=== PATIENT | female | born 1990 | race Caucasian/White ===

== ENCOUNTER → 2018-11-09 | Outpatient (CLI) | payer OTHER ==
--- NOTE | 2018-11-10 10:04 | US ---
EXAMINATION TYPE: US pelvis complete transvaginal plus Dopplers DATE OF EXAM: 11/09/2018 COMPARISON: None CLINICAL HISTORY: 28-year-old female R10.2 Pelvic pain, N92.6 Irregular menses; ; patient stated pelvic pain is noted at time of ovulation and irregular menses as had no LMP in past 2 to 3 months. TECHNIQUE: Transabdominal sonographic images of the pelvis were acquired. Transvaginal sonographic images were medically necessary to better assess the following anatomy: endometrium and ovaries. Col or Doppler and spectral waveform analysis of the ovarian arteries. Date of LMP: 11/06/2018 FINDINGS: EXAM MEASUREMENTS: Uterus: 8.7 x 5.2 x 4.2 cm Endometrial Stripe: 1.0 cm Right Ovary: 3.5 x 2.9 x 2.2 cm Left Ovary: 2.5 x 2.0 x 1.1 cm 1. Uterus: Anteverted; multiple small Nabothian cysts in cervix, largest measuring 0.6 x 0.5 x 0.5cm 2. Endometrium: thickness may be wnl for day 4 of the menstrual cycle 3. Right Ovary: small follicles with largest simple follicle = 0.8 x 0.8 x 0.8 cm. 4. Left Ovary: thick wall involuting cyst noted = 1.2 x 1.1 x 0.7cm Spectral, color and waveform doppler imaging shows good arterial and venous flow within the ovaries ; there is no evidence for ovarian torsion. 5. Bilateral Adnexa: wnl 6. Posterior cul-de-sac: wnl IMPRESSION: 1. No sonographic evidence for ovarian torsion. 2. Probable 1.2 cm corpus luteum on the left and a dominant follicle on the right measuring only 8 mm . 3. No pelvic free fluid.
== END | disposition home or self-care (01) ==
LOC: RADUSWWP 15:43
PROVIDERS: ATTEND Obstetrics & Gynecology
DX: R10.2 Pelvic and perineal pain (principal); N92.6 Irregular menstruation, unspecified
CPT/HCPCS: 76830; 76856

== ENCOUNTER → 2020-09-27 | Outpatient (CLI) | payer OTHER ==
[2020-09-27 14:39] LABS: HCT 42.1 % (37.2-46.3); HGB 13.7 g/dL (12.0-15.0); MCH 29.6 pg (27.0-32.0); MCHC 32.5 g/dL (32.0-37.0); MCV 90.9 fL (80.0-97.0); Mean Platelet Volume 10.1 fL (9.5-12.2); Platelet Count 302 X 10*3/uL (140-440); RBC 4.63 X 10*6/uL (4.10-5.20); RDW 12.8 % (11.5-14.5); WBC 8.69 X 10*3/uL (4.50-10.00)
[2020-09-27 17:03] LABS: African American GFR (CKD) 133.8 (60.0-200.0); Albumin 4.4 g/dL (3.80-4.90); Anion Gap 9.4 mmol/L (4.00-12.00); BUN/Creat Ratio 27.14 Ratio (12.00-20.00); Calcium 8.8 mg/dL (8.7-10.3); Carbon Dioxide 21.6 mmol/L (21.6-31.8); Chol/HDL Ratio 3.57; Globulin 2.2 g/dL (1.6-3.3); LDL Cholesterol,Calculated 85.2 mg/dL (0.0-131.0); Non-African American GFR(CKD) 115.4 (60.0-200.0); Potassium 4.4 mmol/L (3.5-5.5); Total Bilirubin 0.4 mg/dL (0.3-1.2); Total Protein 6.6 g/dL (6.2-8.2); VLDL Calculation 22.8 mg/dL (5.00-40.00)
[2020-09-27 17:09] LABS: T4, Free (Free Thyroxine) 1.1 ng/dL (0.80-1.80)
[2020-09-27 19:43] LABS: Hemoglobin A1C 5.2 % (4.0-6.0)
== END | disposition home or self-care (01) ==
LOC: LABWHC1 10:02
PROVIDERS: ATTEND Psychiatry & Neurology Psychiatry
DX: F43.10 Post-traumatic stress disorder, unspecified (principal); F41.1 Generalized anxiety disorder
CPT/HCPCS: 36415; 80053; 80061; 83036; 84439; 84443; 84481; 85027

== ENCOUNTER 2020-12-22 03:25 | Emergency (ER) | payer OTHER ==
[2020-12-22] MEDS ORDERED: KETOROLAC 15 MG/ML 1 ML VIAL IVP STA (04:07)
[2020-12-22] MEDS ORDERED: SODIUM CHLORIDE 0.9% 1,000 ML IV STA (04:07)
[2020-12-22] MEDS ORDERED: ONDANSETRON 4 MG/2 ML VIAL IVP STA (04:07)
[2020-12-22] MEDS ORDERED: PANTOPRAZOLE 40 MG/10 ML VIAL IVP STA (04:07)
--- NOTE | 2020-12-22 04:07 | ED ---
Abdominal Pain HPI - General Source: patient, RN notes reviewed, old records reviewed Mode of arrival: ambulatory Limitations: no limitations - History of Present Illness MD Complaint: abdominal pain -: days(s) (3) Location: RUQ, epigastric Radiation: epigastric, back Migration to: R flank Severity: moderate Severity scale (1-10): 7 Quality: fullness, sharp Consistency: constant Improves With: nothing Worsens With: nothing Associated Symptoms: nausea Treatments Prior to Arrival: other (none) <Phi Cardenas - Last Filed: 12/22/20 04:11> <Phi Wolf - Last Filed: 12/22/20 09:00> - General Chief Complaint: Abdominal Pain Stated Complaint: Abdominal Pain, nausea Time Seen by Provider: 12/22/20 03:38 - History of Present Illness Initial Comments: This is a 30-year-old female to the emergency department for evaluation, patient presented with months of epigastric abdominal pain and right upper quadrant abdominal pain significant worse for the last 3 days. Severe anterior abdominal pain nausea no vomiting. Patient has without fevers. But she is unable to eat or drink secondary to this pain. Pain is again epigastric fullness tenderness as well as right upper quadrant sometimes a shoulder sometimes to her back (Phi Cardenas) - Related Data Allergies Allergy/AdvReac Type Severity Reaction Status Date / Time No Known Allergies Allergy Verified 12/22/20 03:33 Review of Systems ROS Other: All systems not noted in ROS Statement are negative. <Phi Cardenas - Last Filed: 12/22/20 04:11> ROS Other: All systems not noted in ROS Statement are negative. <Phi Wolf - Last Filed: 12/22/20 09:00> ROS Statement: Those systems with pertinent positive or pertinent negative responses have been documented in the HPI. Past Medical History Additional Past Medical History / Comment(s): PCOS History of Any Multi-Drug Resistant Organisms: None Reported Past Surgical History: Tonsillectomy Additional Past Surgical History / Comment(s): D&C 2016 Past Psychological History: No Psychological Hx Reported Smoking Status: Never smoker Past Alcohol Use History: None Reported Past Drug Use History: None Reported <Phi Cardenas - Last Filed: 12/22/20 04:11> General Exam General appearance: alert, in no apparent distress Head exam: Present: atraumatic, normocephalic, normal inspection Eye exam: Present: normal appearance, PERRL, EOMI. Absent: scleral icterus, conjunctival injection, periorbital swelling ENT exam: Present: normal exam, mucous membranes moist Neck exam: Present: normal inspection. Absent: tenderness, meningismus, lymphadenopathy Respiratory exam: Present: normal lung sounds bilaterally. Absent: respiratory distress, wheezes, rales, rhonchi, stridor Cardiovascular Exam: Present: regular rate, normal rhythm, normal heart sounds. Absent: systolic murmur, diastolic murmur, rubs, gallop, clicks GI/Abdominal exam: Present: soft, tenderness, normal bowel sounds. Absent: distended, guarding, rebound, rigid Extremities exam: Present: normal inspection, full ROM, normal capillary refill. Absent: tenderness, pedal edema, joint swelling, calf tenderness Back exam: Present: normal inspection Neurological exam: Present: alert, oriented X3, CN II-XII intact Psychiatric exam: Present: normal affect, normal mood Skin exam: Present: warm, dry, intact, normal color. Absent: rash <Phi Cardenas - Last Filed: 12/22/20 04:11> Course <Phi Cardenas - Last Filed: 12/22/20 04:11> Vital Signs 12/22/20 12/22/20 12/22/20 03:30 03:58 07:12 Temperature 98.1 F 98.5 F Pulse Rate 87 92 79 Respiratory 18 20 20 Rate Blood Pressure 139/81 138/88 115/71 O2 Sat by Pulse 97 98 97 Oximetry - Reevaluation(s) Reevaluation #1: 12/22/20 04:12 Medical record is reviewed (Phi Cardenas) Reevaluation #2: 12/22/20 04:12 Patient's pain is improved (Phi Cardenas) Medical Decision Making - Lab Data Result diagrams: 12/22/20 05:01 12/22/20 05:01 <Phi Wolf - Last Filed: 12/22/20 09:00> - Medical Decision Making Patient's ultrasound showed no acute abnormality with the gallbladder I went back in the room to reevaluate the patient she was comfortable in watching TV and felt considerably better at this time per patient will follow-up with the primary medical care doctor for her symptoms if they continue. (Phi Wolf) - Lab Data Lab Results 12/22/20 12/22/20 12/22/20 Range/Units 05:01 05:01 05:01 WBC 9.1 (3.8-10.6) k/uL RBC 4.40 (3.80-5.40) m/uL Hgb 14.3 (11.4-16.0) gm/dL Hct 39.9 (34.0-46.0) % MCV 90.8 (80.0-100.0) fL MCH 32.6 (25.0-35.0) pg MCHC 35.9 (31.0-37.0) g/dL RDW 14.7 (11.5-15.5) % Plt Count 245 (150-450) k/uL MPV 7.4 Neutrophils % 65 % Lymphocytes % 28 % Monocytes % 5 % Eosinophils % 1 % Basophils % 1 % Neutrophils # 5.9 (1.3-7.7) k/uL Lymphocytes # 2.5 (1.0-4.8) k/uL Monocytes # 0.4 (0-1.0) k/uL Eosinophils # 0.1 (0-0.7) k/uL Basophils # 0.1 (0-0.2) k/uL Hypochromasia Slight Poikilocytosis Slight Sodium (137-145) mmol/L Potassium (3.5-5.1) mmol/L Chloride (98-107) mmol/L Carbon Dioxide (22-30) mmol/L Anion Gap mmol/L BUN (7-17) mg/dL Creatinine (0.52-1.04) mg/dL Est GFR (CKD-EPI)AfAm (>60 ml/min/1.73 sqM) Est GFR (CKD-EPI)NonAf (>60 ml/min/1.73 sqM) Glucose (74-99) mg/dL Calcium (8.4-10.2) mg/dL Total Bilirubin (0.2-1.3) mg/dL AST (14-36) U/L ALT (4-34) U/L Alkaline Phosphatase (38-126) U/L Total Protein (6.3-8.2) g/dL Albumin (3.5-5.0) g/dL Amylase (30-110) U/L Lipase (23-300) U/L Urine Color Light Yellow Urine Appearance Cloudy H (Clear) Urine pH 5.5 (5.0-8.0) Ur Specific [place] 1.015 (1.001-1.035) Urine Protein Negative (Negative) Urine Glucose (UA) Negative (Negative) Urine Ketones Negative (Negative) Urine Blood Trace H (Negative) Urine Nitrite Negative (Negative) Urine Bilirubin Negative (Negative) Urine Urobilinogen <2.0 (<2.0) mg/dL Ur Leukocyte Esterase Negative (Negative) Urine RBC <1 (0-5) /hpf Urine WBC <1 (0-5) /hpf Ur Squamous Epith Cells <1 (0-4) /hpf Urine Bacteria Rare H (None) /hpf Urine Mucus Rare H (None) /hpf Urine HCG, Qual Not Detected (Not Detectd) 12/22/20 Range/Units 05:01 WBC (3.8-10.6) k/uL RBC (3.80-5.40) m/uL Hgb (11.4-16.0) gm/dL Hct (34.0-46.0) % MCV (80.0-100.0) fL MCH (25.0-35.0) pg MCHC (31.0-37.0) g/dL RDW (11.5-15.5) % Plt Count (150-450) k/uL MPV Neutrophils % % Lymphocytes % % Monocytes % % Eosinophils % % Basophils % % Neutrophils # (1.3-7.7) k/uL Lymphocytes # (1.0-4.8) k/uL Monocytes # (0-1.0) k/uL Eosinophils # (0-0.7) k/uL Basophils # (0-0.2) k/uL Hypochromasia Poikilocytosis Sodium 135 L (137-145) mmol/L Potassium 4.3 (3.5-5.1) mmol/L Chloride 105 (98-107) mmol/L Carbon Dioxide 21 L (22-30) mmol/L Anion Gap 9 mmol/L BUN 15 (7-17) mg/dL Creatinine 0.64 (0.52-1.04) mg/dL Est GFR (CKD-EPI)AfAm >90 (>60 ml/min/1.73 sqM) Est GFR (CKD-EPI)NonAf >90 (>60 ml/min/1.73 sqM) Glucose 95 (74-99) mg/dL Calcium 9.8 (8.4-10.2) mg/dL Total Bilirubin 0.2 (0.2-1.3) mg/dL AST 20 (14-36) U/L ALT 16 (4-34) U/L Alkaline Phosphatase 71 (38-126) U/L Total Protein 6.7 (6.3-8.2) g/dL Albumin 4.1 (3.5-5.0) g/dL Amylase 48 (30-110) U/L Lipase 171 (23-300) U/L Urine Color Urine Appearance (Clear) Urine pH (5.0-8.0) Ur Specific [place] (1.001-1.035) Urine Protein (Negative) Urine Glucose (UA) (Negative) Urine Ketones (Negative) Urine Blood (Negative) Urine Nitrite (Negative) Urine Bilirubin (Negative) Urine Urobilinogen (<2.0) mg/dL Ur Leukocyte Esterase (Negative) Urine RBC (0-5) /hpf Urine WBC (0-5) /hpf Ur Squamous Epith Cells (0-4) /hpf Urine Bacteria (None) /hpf Urine Mucus (None) /hpf Urine HCG, Qual (Not Detectd) Disposition <Phi Cardenas - Last Filed: 12/22/20 04:11> Is patient prescribed a controlled substance at d/c from ED?: No Time of Disposition: 09:00 <Phi Wolf - Last Filed: 12/22/20 09:00> Clinical Impression: Right upper quadrant abdominal pain Disposition: HOME SELF-CARE Instructions (If sedation given, give patient instructions): Abdominal Pain (ED) Referrals: Arian Castaneda DO [Primary Care Provider] - 1-2 days
[2020-12-22 05:29] LABS: Appearance,Urine Cloudy (Clear); Bacteria,Urine Rare /hpf; Bilirubin,Urine Negative (Negative); Blood,Urine Trace (Negative); Color,Urine Light Yellow; Glucose,Urine (UA) Negative (Negative); Ketones,Urine Negative (Negative); Leukocyte Esterase,Urine Negative (Negative); Mucus,Urine Rare /hpf; Nitrite,Urine Negative (Negative); PH, Urine 5.5 (5.0-8.0); Protein,Urine Negative (Negative); RBC,Urine <1 /hpf (0-5); Specific Gravity,Urine 1.015 (1.001-1.035); Squamous Epithelial Cell,Urine <1 /hpf (0-4); Urobilinogen,Urine <2.0 mg/dL (<2.0); WBC,Urine <1 /hpf (0-5)
[2020-12-22 05:37] LABS: Basophils # (A) 0.1 k/uL (0-0.2); Basophils % (A) 1 %; Eosinophils # (A) 0.1 k/uL (0-0.7); Eosinophils % (A) 1 %; HCT 39.9 % (34.0-46.0); HGB 14.3 gm/dL (11.4-16.0); Hypochromasia Slight; Lymphocytes # (A) 2.5 k/uL (1.0-4.8); Lymphocytes % (A) 28 %; MCH 32.6 pg (25.0-35.0); MCHC 35.9 g/dL (31.0-37.0); MCV 90.8 fL (80.0-100.0); Mean Platelet Volume 7.4; Monocytes # (A) 0.4 k/uL (0-1.0); Monocytes % (A) 5 %; Neutrophils # (A) 5.9 k/uL (1.3-7.7); Neutrophils % (A) 65 %; Platelet Count 245 k/uL (150-450); Poikilocytosis Slight; RDW 14.7 % (11.5-15.5); WBC 9.1 k/uL (3.8-10.6)
[2020-12-22 05:48] LABS: ALT 16 U/L (4-34); AST 20 U/L (14-36); African American GFR (CKD) >90 (>60 ml/min/1.73 sqM); Albumin 4.1 g/dL (3.5-5.0); Alkaline Phosphatase 71 U/L (38-126); Amylase 48 U/L (30-110); Anion Gap 9 mmol/L; Blood Urea Nitrogen 15 mg/dL (7-17); Calcium 9.8 mg/dL (8.4-10.2); Carbon Dioxide 21 mmol/L (22-30); Chloride 105 mmol/L (98-107); Glucose 95 mg/dL (74-99); Lipase 171 U/L (23-300); Non-African American GFR(CKD) >90 (>60 ml/min/1.73 sqM); Potassium 4.3 mmol/L (3.5-5.1); Sodium 135 mmol/L (137-145); Total Bilirubin 0.2 mg/dL (0.2-1.3); Total Protein 6.7 g/dL (6.3-8.2)
--- NOTE | 2020-12-22 07:26 | US ---
EXAMINATION TYPE: US gallbladder DATE OF EXAM: 12/22/2020 COMPARISON: NONE CLINICAL HISTORY: pain. Pain. EXAM MEASUREMENTS: Liver Length: 16.2 cm Gallbladder Wall: 0.26 cm CBD: 0.39 cm Right Kidney: 11.9 x 5.6 x 4.1 cm Limited due to gas and patient body habitus. Pancreas: Appears hyperechoic. Tail obscured by gas. Liver: Appears to have an increased echogenicity, slightly coarse in echotexture. Gallbladder: Minimal debris may be within the gallbladder. Measures 3.6 cm in width. Evidence for sonographic Rees's sign: No CBD: Portion seen appears wnl. Right Kidney: Anechoic appearance medially-renal pelvis appears to be dilated. IMPRESSION: 1. No acute abnormality within the visualized abdomen by ultrasound.
[2020-12-22 09:06] VITALS: BP 127/74; PULSE 69; RESP 16; TEMP 99
== END 2020-12-22 09:06 | disposition home or self-care (01) ==
LOC: EC 03:25
DX: R10.31 Right lower quadrant pain (principal); Z90.89 Acquired absence of other organs
CPT/HCPCS: 99284; 96374; 96375 ×2; 96361 ×4; 36415; 80053; 82150; 83690; 85025; 81001; 81025; 76705; J2405; J1885; C9113

== ENCOUNTER → 2021-11-08 | Outpatient (CLI) | payer OTHER ==
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
== END | disposition home or self-care (01) ==
LOC: RADXRMAIN 15:42
PROVIDERS: ATTEND Emergency Medicine
DX: V89.2XXA Person injured in unspecified motor-vehicle accident, traffic, initial encounter (principal)
CPT/HCPCS: 72050; 72072; 72100

== ENCOUNTER → 2023-05-21 | Outpatient (CLI) | payer OTHER ==
--- NOTE | 2023-05-22 08:59 | MM ---
Reason for Exam: Screening (asymptomatic). Baseline mammogram. Patient History: Menarche at age 12. First Full-Term at age 17. Patient has history of breast feeding. Patient used Hormonal Contraceptives for 5 years. Prior Study Comparison: Patient's first Mammogram. Tissue Density: There are scattered fibroglandular densities. Findings: Analyzed By CAD. There is no suspicious group of microcalcifications or new suspicious mass. Nothing to correlate with patient's area of palpable abnormality in the left breast lateral upper aspect.. Overall Assessment: Incomplete: need additional imaging evaluation, BI-RAD 0 Management: Diagnostic Breast Ultrasound of the left breast. [facility] will attempt to contact patient to return for supplemental views and ultrasound if indicated. Patient should continue monthly self-breast exams. A clinical breast exam by your physician is recommended on an annual basis. This exam should not preclude additional follow-up of suspicious palpable abnormalities. Note on Radha scores and lifetime risk: 1. A Radha score greater than 3% is considered moderate risk. If this is the case, consider specialist referral to assess eligibility for a risk reducing agent. 2. If overall lifetime risk for the development of breast cancer is 20% or higher, the patient may qualify for future screening with alternating mammogram and breast MRI. Electronically signed and approved by: Matthew Almonte DO
== END | disposition home or self-care (01) ==
LOC: RADMAMWWP 14:17
PROVIDERS: ATTEND Family Medicine
DX: Z12.31 Encounter for screening mammogram for malignant neoplasm of breast (principal)
CPT/HCPCS: 77063; 77067